=== PATIENT | female | born 1965 | race Caucasian/White ===

== ENCOUNTER 2021-06-27 09:39 | Outpatient (REF) | payer OTHER, SELFPAY ==
--- NOTE | ~2021-06-27 | XR_ITS ---
EXAMINATION: XR CERVICAL SPINE CLINICAL INFORMATION: Neck pain COMPARISON: None TECHNIQUE: 3 views of the cervical spine were obtained. FINDINGS: There are no prevertebral soft tissue or bony abnormalities demonstrated. No compression fractures or subluxations are identified. Alignment is maintained at the atlanto-axial articulation. The disc spaces are preserved. No endplate changes are seen. The prevertebral soft tissues are normal. The foramina are patent. XR/XR cervical spine 3V IMPRESSION: Unremarkable cervical spine examination.
== END 2021-06-27 09:40 | disposition home or self-care (01) ==
LOC: HO.HMGCLDS 09:39
PROVIDERS: PCP Nurse Practitioner Family; Visit Provider Nurse Practitioner Family
DX: M50.90 Cervical disc disorder, unspecified, unspecified cervical region (principal)
CPT/HCPCS: 72040

== ENCOUNTER 2021-12-13 09:07 | Emergency (ER) | payer OTHER, SELFPAY ==
--- NOTE | ~2021-12-13 | CT_ITS ---
EXAMINATION: CT CERVICAL SPINE WITHOUT CONTRAST CLINICAL INFORMATION: Pain COMPARISON: Previous x-ray June 2021 TECHNIQUE: Axial images through the cervical spine without contrast. Sagittal and coronal reconstructions on the technologist workstation were performed. This CT examination was performed using dose optimization techniques as appropriate, variously including the following: *Automated exposure control *Adjustment of mA and/or kV according to patient size (this includes techniques or standardized protocols for targeted exams where dose is matched to indication/reason for exam; i.e. extremities or head) *Use of iterative reconstruction technique DLP: 540 mGy-cm FINDINGS: Head is slightly tilted to the right. Bone alignment is otherwise normal. No fracture or dislocation is seen. There is degenerative spondylosis at C5-C6 and C6-C7. There is disc space narrowing at C6-C7. At C2-C3 there is no disc herniation protrusion or bulge. At C3-C4 there is mild central disc bulge. No disc herniation is seen. At C4-C5 there is central disc protrusion. No disc herniation is seen. At C5-C6 there is left paracentral disc bulge. No disc herniation is seen. At C6-C7 there is a right paracentral disc herniation/disc and bony osteophyte complex and narrowing of the right lateral recess. At C7-T1 there is no disc herniation protrusion or bulge. Prevertebral soft tissues are normal. There is shotty bilateral cervical lymphadenopathy. Visualized lung apices are clear. There is a left maxillary sinus disease. CT/CT cervical spine wo con IMPRESSION: No fracture or dislocation. Degenerative disc disease greatest at C6-C7 on the right where there is right paracentral disc herniation/disc and bony osteophyte complex narrowing of the right lateral recess. Fleischner guidelines were followed.
[2021-12-13 09:13] VITALS: BP 146/83; PULSE 75; RESP 16; TEMP 36.1; O2SAT 97; BMI 33.0
--- NOTE | 2021-12-13 09:19 | PC.NURSE ---
patient wanted to wait to see provider before x ray orders placed.
--- NOTE | 2021-12-13 10:20 | ED_ITS ---
HPI - General Adult General Chief complaint: General Medical Stated complaint: Neck Back Arm Pain Time Seen by Provider: 12/13/21 10:08 Source: patient and family Mode of arrival: ambulatory Limitations: no limitations History of Present Illness HPI narrative: 56-year-old female here with reports of neck pain which radiates and down the right arm intermittent since May worsened over the last few days. Patient tells me she had some x-rays and May or June. She was seen by her primary care at that time and she was given a course of prednisone. Patient tells me that she had side effects from prednisone as she did not continue the medication. She was seen 2 days ago at urgent care. She was recommended to take another dose of prednisone but patient did not want to. She is here today for continued symptoms. She is taking Motrin, Tylenol with continued symptoms. She did take 1 dose of her 's tramadol which seemed to help her pain. She reports pain in the neck which radiates down the right arm with numbness in the 2nd and 3rd digit. She denies any known injury or trauma. 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 She is right- handed. Related Data Previous Rx's Medication Instructions Recorded cyclobenzaprine 5 mg tablet 5 mg PO TID PRN muscle spasm #15 12/13/21 tabs tramadol 50 mg tablet 50 mg PO Q6H PRN pain #10 tabs 12/13/21 Allergies Allergy/AdvReac Type Severity Reaction Status Date / Time ciprofloxacin [From CIPRO] Allergy Severe UNKNOWN Verified 07/20/21 07:52 Sulfa (Sulfonamide Allergy Unknown UNKNOWN, Verified 07/20/21 07:52 Antibiotics) Vomiting [SULFA (SULFONAMIDE ANTIBIOTICS)] Antibiotic Allergy Unknown Unknown Uncoded 07/20/21 07:52 bee sting Allergy Unknown Swelling Uncoded 07/20/21 07:52 Bee stings Allergy Unknown Severe Uncoded 07/20/21 07:52 swelling, SOB Ciprofloxacin Allergy Unknown dizziness Uncoded 07/20/21 07:52 Review of Systems Review of Systems: Yes all other systems are reviewed and are negative Constitutional: Constitutional: Reports no additional constitutional complaints, Denies body ache(s), Denies chills, Denies fever(s), Denies headache(s) and Denies weakness Eyes: Eyes: Reports no additional eye complaints and Denies change in vision ENT: Reports system reviewed and no additional complaints, except as documented, Denies dizziness, Denies headache(s), Denies nasal congestion, Denies nasal discharge and Reports neck pain Cardiovascular: Cardiovascular: Reports no additional cardiovascular complaints, Denies chest pain, Denies leg edema and Denies dyspnea Respiratory: Respiratory: Reports no additional respiratory complaints, Denies cough and Denies dyspnea Gastrointestinal: Gastrointestinal: Reports no additional gastrointestinal complaints, Denies abdominal pain, Denies diarrhea, Denies nausea and Denies vomiting Genitourinary: Genitourinary: Reports no additional female genitourinary complaints and Denies urinary incontinence Musculoskeletal: Musculoskeletal: Reports no additional musculoskeletal complaints, Denies back pain, Denies arthralgias, Denies joint swelling, Reports neck pain, Reports numbness, Reports radiating pain into limb and Denies tingling Integumentary/Breasts: Skin/Breast: Reports system reviewed and no additional complaints, except as docu and Denies rash Neurologic: Reports system reviewed and no additional complaints, except as documented, Denies dizziness, Denies headache(s), Reports numbness, Denies tingling and Denies weakness [facility] Past Medical History Attestation statement: The following information was validated with the patient. Source: old records reviewed and nursing notes reviewed Social History Social History Patient Tobacco Use Status: Former Tobacco user Advance Directives: No Advance Directives Information Provided: Yes Physical Exam ED Vital Signs: Vital Signs - 24 hr 12/13/21 09:13 12/13/21 12:14 Temperature 96.9 F 97.9 F Pulse Rate 75 53 Respiratory Rate 16 16 Blood Pressure 146/83 H 187/87 H Pulse Oximetry 97 95 Oxygen Delivery Method Room Air Room Air BMI result Body Mass Index 33.0 Const General: alert Orientation/consciousness: patient oriented x3 Limitations: no limitations HENMT Head: Yes normal to inspection Ears: hearing grossly normal bilaterally General nose exam: Normal external nose present Face and sinus: Yes normal facial exam Eyes General: appearance normal, both eyes and all related structures Pupils: Equal, round and reactive pupils present Neck Other: There is tenderness to the cervical mid spine. There are no step-offs defor mities. There is also tenderness to the right trapezius with palpable muscle spasm. Pain is relieved with the arm over the head. +Spurlings Neck: Yes normal visual inspection Chest Chest palpation & inspection: normal inspection of the chest Resp Effort & Inspection: normal respiratory effort Auscultation: clear to auscultation bilaterally Cardio Rate: regular rate Rhythm: regular rhythm Peripheral pulses: Peripheral pulses 2+ throughout GI Inspection: Yes normal to inspection Back/Spine/Pelvis Thoracic/Lumbar Spine: thoracic and lumbar spine normal to inspection Skin General skin exam: no rashes or lesions noted Neuro General: patient oriented x3 Cranial nerves: Yes CN's II-XII intact bilaterally, Yes Equal, round and reactive pupils present, Yes Bilaterally intact EOM present, Yes Nystagmus not present, Yes Normal facial strength present and Yes Midline tongue present Cognition (Neuro): normal cognition Gait exam (Neuro): Normal gait present Motor exam (neuro): 5/5 motor strength present throughout Sensory Exam: Normal double simultaneous stimulation for sensation Deep tendon reflexes (DTR's): Right triceps reflex intensity grade: 2+, Left triceps reflex intensity grade: 2+, Rt Biceps (C5, C6): 2+, Left biceps reflex intensity grade: 2+, Right brachioradialis reflex intensity grade: 2+ and Left brachioradialis reflex intensity grade: 2+ Extrem General: Yes normal to inspection Course Course Course Narrative: CT shows IMPRESSION: No fracture or dislocation. Degenerative disc disease greatest at C6-C7 on the right where there is right paracentral disc herniation/disc and bony osteophyte complex narrowing of the right lateral recess. ? -pain now 4/10 after receiving Toradol. Patient is hesitant to try a round of prednisone as she had poor side effects to the last round. She has ibuprofen at home. Recommend she take this 3 times a day. Will add Flexeril and tramadol. Patient has referral for physical therapy which I recommended she start. She can follow up with her primary care doctor for any persistent symptoms. Bruce woodward worrisome signs and symptoms of when to return to the emergency department. Comfortable discharge home. Medical Decision Making [facility] Narrative Medical decision making narrative: 56-year-old female here with intermittent neck pain with radiation down the right arm since May. Patient reports some numbness in her 2nd and 3rd digit. Normal neuro exam. No cervical step-offs or deformities. There is midline cervical tenderness and right trapezius tenderness on exam. Positive spurlings test. +shoulder abduction test. Exam is consistent with a cervical radiculopathy. Patient is a considerable amount of pain. Will check CT cervical spine to rule out underlying mass, verterbral abnormality. Will provide Toradol IM and re-assess. -low concern for epidural abscess with no history of IV drug abuse, no fever, no immunocompromised state Medical Records Medical records reviewed: Yes I reviewed the patient's medical records. Lab Data Lab results reviewed: Yes I reviewed the patient's lab results. Imaging Data CT cervical spine: Attestation: I personally reviewed and interpreted this imaging study as follows: Radiologist's impression: IMPRESSION: No fracture or dislocation. Degenerative disc disease greatest at C6-C7 on the right where there is right paracentral disc herniation/disc and bony osteophyte complex narrowing of the right lateral recess. ? Discharge Plan Discharge Clinical Impression: Cervical radiculopathy Patient Disposition: Home, Self-Care Instructions: Cervical Radiculopathy (ED) Additional Instructions: Heat to the area Gentle stretching Follow-up with primary care doctor for persistent symptoms as you may require an MRI Return for fever, weakness Continue Motrin 3 times daily Consider doing the physical therapy Prescriptions: New tramadol 50 mg tablet 50 mg PO Q6H PRN (Reason: pain) Qty: 10 0RF cyclobenzaprine 5 mg tablet 5 mg PO TID PRN (Reason: muscle spasm) Qty: 15 0RF Referrals: Idris Gracia, DIESEL TECHNICIAN MECHANIC-[employer] [Primary Care Provider] - Stand Alone Forms: Work/School Release
[2021-12-13] MEDS: Ketorolac Tromethamine 60 MG/2 ML VIAL IM (10:33)
[2021-12-13 12:14] VITALS: BP 187/87; PULSE 53; RESP 16; TEMP 36.6; O2SAT 95
== END 2021-12-13 13:01 | disposition home or self-care (01) ==
PROVIDERS: Emergency Provider Emergency Medicine; PCP Nurse Practitioner Family
DX: M54.12 Radiculopathy, cervical region (principal); M54.2 Cervicalgia; Z87.891 Personal history of nicotine dependence; Z79.899 Other long term (current) drug therapy
CPT/HCPCS: 72125; 96372; 99284; J1885

== ENCOUNTER 2023-08-08 11:28 | Outpatient (AMB) | payer OTHER, SELFPAY ==
--- NOTE | 2023-08-08 11:26 | AM.OFFWIN_ITS ---
Intake Vital Signs 08/08/23 11:33 Height 4 ft 10 in Weight 146 lb BMI 30.5 BP 116/76 Blood Pressure Location Lt brachial Position Sitting Pulse 85 Pulse Source Pulse Oximeter Temp 98.9 F Temp Source Temporal Artery Scan Pulse Oximetry (%) 97 Oxygen Delivery Method Room Air Intake Visit Reasons: EP Bilateral ear pain/?Sinus infection Intake Note: pt is here today for bilateral ear pain and sinus infection started 2 weeks ago Patient Tobacco Use Status: Former Tobacco user Allergies ciprofloxacin [From CIPRO] Allergy (Severe, Verified 08/08/23 11:27) UNKNOWN Sulfa (Sulfonamide Antibiotics) [SULFA (SULFONAMIDE ANTIBIOTICS)] Allergy (Unknown, Verified 08/08/23 11:27) UNKNOWN, Vomiting Antibiotic Allergy (Unknown, Uncoded 12/20/21 11:29) Unknown bee sting Allergy (Unknown, Uncoded 12/20/21 11:29) Swelling Bee stings Allergy (Unknown, Uncoded 12/20/21 11:29) Severe swelling, SOB Ciprofloxacin Allergy (Unknown, Uncoded 12/20/21 11:29) dizziness Medication List - Last Reconciled 08/08/23 by Rita Keenan NP carbamide peroxide 6.5% (Debrox) 5 drps otic (ears) BID 7 days oxymetazoline 0.05% (Afrin (oxymetazoline)) 2 sprays intranasal Q12H PRN 3 days Do you need a note to return to daycare/school/sports/work: No HPI HPI Comments History of Present Illness Details 58 y/o female patient presents to walk i n clinic with c/o bilateral ear pain associated with sinus pressure. Denies fevers, chills, nausea or vomiting. Denies nasal discharge, cough, SOB or wheezing. No recent sick contacts at home. She has not been using OTC medicines. [facility] Medical History (Updated 06/15/22 @ 11:23 by KAELYN Meyer-BA) Cervical disc herniation DDD (degenerative disc disease), cervical Social History Patient Tobacco Use Status: Former Tobacco user Review of Systems Const All systems reviewed & are unremarkable except as noted in HPI and below Physical Exam Vital Signs: Last Vital Signs Temp 98.9 F 02/15/24 11:33 Pulse 85 08/08/23 11:33 BP 116/76 08/08/23 11:33 Pulse Ox 97 08/08/23 11:33 Oxygen Delivery Method Room Air 08/08/23 11:33 BMI result Body Mass Index 30.5 Const General: comfortable and no acute distress HEENT Head: Yes normocephalic Ears: external ears normal, TM abnormal obstructed by cerumen and unable to visualize TM bilaterally General nose exam: No nasal discharge present and Abnormal mucous membranes and turbinates present boggy and erythematous Face and sinus: Yes sinuses nontender Mouth: Normal oral and palatal mucosa present and moist mucous membranes Throat: Yes posterior oropharynx normal Resp Effort & Inspection: normal respiratory effort Auscultation: clear to auscultation bilaterally Cardio Rate: regular rate Rhythm: regular rhythm Assessment & Plan Assessment & Plan (1) Acute nasopharyngitis [common cold]: Code(s): J00 - Acute nasopharyngitis [common cold] Plan: - No signs of infection - OTC Afrin and nasal Cord (2) Cerumen impaction: Code(s): H61.20 - Impacted cerumen, unspecified ear Qualifiers: Laterality: bilateral Qualified Code(s): H61.23 - Impacted cerumen, bilateral Plan: - Debrox for 7 days. - Pt declined Ear lavage (3) Sinus pressure: Code(s): J34.89 - Other specified disorders of nose and nasal sinuses Plan: - Nasal saline OTC - Afrix for 3 days - Debrox Plan - Pt declined in office ear lavage - No signs of infection Medications: New oxymetazoline 0.05% (Afrin (oxymetazoline)) 2 sprays intranasal Q12H 3 days PRN 15 mL 0RF nasal congestion J00 - Acute nasopharyngitis [common cold], J34.89 - Other specified disorders of nose and nasal sinuses carbamide peroxide 6.5% (Debrox) 5 drps otic (ears) BID 7 days 15 mL 0RF H61.23 - Impacted cerumen, bilateral, J34.89 - Other specified disorders of nose and nasal sinuses Coding Level of Care Code Est Pt Level 3 (80407) Diagnoses Acute nasopharyngitis [common cold] J00 Bilateral impacted cerumen H61.23 Laterality: bilateral Sinus pressure J34.89 Time Spent (min) 15
[2023-08-08 11:33] VITALS: BP 116/76; PULSE 85; TEMP 37.2; O2SAT 97; BMI 30.5
== END 2023-08-08 12:26 | disposition home or self-care (01) ==
PROVIDERS: PCP Nurse Practitioner Family; Visit Provider Nurse Practitioner Family
DX: J00 Acute nasopharyngitis [common cold] (principal); H61.23 Impacted cerumen, bilateral; J34.89 Other specified disorders of nose and nasal sinuses
CPT/HCPCS: 99213

== ENCOUNTER 2023-10-11 08:06 | Outpatient (REF) | payer OTHER, SELFPAY ==
--- NOTE | ~2023-10-11 | XR_ITS ---
EXAMINATION: XR CHEST CLINICAL INFORMATION: Abnormal weight loss COMPARISON: 12/21/2018 TECHNIQUE: 2 views of the chest were obtained. FINDINGS: No significant abnormality is noted involving the heart, lungs, mediastinum, bony thorax or soft tissues. XR/XR chest 2V IMPRESSION: Unremarkable examination.
[2023-10-11 10:31] LABS: MANUAL DIFF FLAG NO
[2023-10-11 10:35] LABS: Appearance Urine Clear; Color Urine Yellow; Glucose Urine UA >=1000 mg/dL (Negative); Leukocyte Esterase Urine Negative (Negative); Nitrite Urine Negative (Negative); Specific Gravity - Urine >= 1.030 (1.005-1.025); UMIC TRIGGER UACC YES; Urine Blood Negative (Negative); Urine Ketones Trace mg/dL (Negative); Urine Protein Negative (Neg-Trace)
[2023-10-11 10:43] LABS: Bacteria Urine None Seen (None Seen); Hyaline Casts Urine 0-2 /LPF (0-2); RBC Urine 0-2 /HPF (0-2); WBC Urine 0-5 /HPF (0-5)
[2023-10-11 10:45] LABS: Basophils Absolute Auto 0.1 X10*3/uL (0.0-0.2); Basophils Percent Auto 1.3 % (0-2); Eosinophils Absolute Auto 0.1 X10*3/uL (0.0-0.4); Hematocrit 46.1 % (37.0-47.0); Hemoglobin 15.4 g/dl (12.0-16.0); Imm Gran Abs Auto 0.02 X10*3/uL (0.00-0.03); Imm Gran Pct Auto 0.4 % (0.0-0.4); Lymphocytes Absolute Auto 1.1 X10*3/uL (1.2-4.9); Lymphocytes Percent Auto 20.5 % (20-40); Mean Corpuscular HGB Conc 33.4 g/dl (31.0-35.0); Mean Corpuscular Hemoglobin 27.8 pg (27.0-33.0); Mean Corpuscular Volume 83.4 fL (80.0-98.0); Mean Platelet Volume 10.3 fL (9.4-12.3); Monocytes Absolute Auto 0.4 X10*3/uL (0.1-1.2); Monocytes Percent Auto 6.7 % (2-11); Neutrophils Absolute Auto 3.7 x10*3/uL (2.0-8.3); Neutrophils Percent Auto 69.1 % (45-73); Platelet Count 251 X10*3/uL (160-400); Red Blood Count 5.53 X10*6/uL (4.20-5.50); Red Cell Distribution Width 12.4 % (11.0-16.0); White Blood Count 5.4 X10*3/uL (4.8-10.8)
[2023-10-11 11:22] LABS: HBS Num1 > 1000.00 mIU/mL (0-7.99); HBc Num1 5.34 S/CO (0.00-0.79); HBsAGNum1 0.33 S/CO (0.00-0.99); HIV AB/AG Nonreactive (Nonreactive); HIV Num 1 0.04 S/CO (0.00-0.99); Hepatitis A Antibody IgM 0.12 Index (0-0.79); Hepatitis B Surface Antigen Negative (Negative); ~HepC Num1 0.15 S/CO (0.00-0.79); ~Hepatitis A Antibody IgM Nonreactive (Nonreactive); ~Hepatitis B Surface Antibody REACTIVE (Nonreactive); ~Hepatitis C Antibody Nonreactive (Nonreactive)
[2023-10-11 11:48] LABS: Erythrocyte Sedimentation Rate 5 MM/HR (0-20)
[2023-10-11 12:04] LABS: Alanine Aminotransferase 20 U/L (0-31); Albumin Level 4.1 g/dL (3.5-5.0); Alkaline Phosphatase 110 U/L (39-117); Anion Gap 11 (12-20); Aspartate Amino Transferase 18 U/L (5-31); Bilirubin Total 0.4 mg/dL (0.0-1.0); Blood Urea Nitrogen 14 mg/dL (9-16); C Reactive Protein 0.45 mg/dL (< or = 0.50); Calcium 9.8 mg/dL (8.4-10.2); Carbon Dioxide 28 mmol/L (22-29); Chloride 103 mmol/L (96-108); Cholesterol 218 mg/dL (<200); Estimated Glomerular Filt Rate > 60; Glucose Fasting 320 mg/dL (60-99); HDL Cholesterol 47 mg/dL (>40); LDL Cholesterol Calculated 148 mg/dL (<100); Potassium 3.9 mmol/L (3.3-5.1); Sodium 138 mmol/L (135-145); TSH reflex Free T4 4.16 uIU/mL (0.32-4.0); Total Protein 6.7 g/dL (6.5-8.0); Triglycerides 116 mg/dL (<150)
[2023-10-11 14:48] LABS: Free T4 (Free Thyroxine) 0.84 ng/dL (0.71-1.85)
[2023-10-11 15:06] LABS: HBc Num2 5.81 S/CO; HBc Num3 5.71 S/CO; Hepatitis B Core Antibody Reactive (Nonreactive)
== END 2023-10-11 08:07 | disposition home or self-care (01) ==
LOC: HO.HMGCX 08:06
PROVIDERS: PCP Nurse Practitioner Family; Visit Provider Nurse Practitioner Family
DX: I10 Essential (primary) hypertension (principal); R63.4 Abnormal weight loss
CPT/HCPCS: 36415; 71046; 80053; 80061; 81001; 84439; 84443; 85025; 85652; 86140; 86704; 86706; 86709; 86803; 87340; 87389

== ENCOUNTER 2023-10-15 14:55 | Outpatient (AMB) | payer OTHER, SELFPAY ==
[2023-10-15 15:00] VITALS: BP 110/72; PULSE 80; O2SAT 98; BMI 28.9
--- NOTE | 2023-10-15 15:00 | MHC.PC.OV ---
Vital Signs 10/15/23 15:00 Height 4 ft 10 in Weight 138 lb 8 oz BMI 28.9 BP 110/72 Blood Pressure Location Rt brachial Position Sitting Pulse 80 Pulse Source Pulse Oximeter Pulse Oximetry (%) 98 Oxygen Delivery Method Room Air Intake Visit Reasons: Follow up Weight loss >20 lbs Intake Note: pt is here for concern of weight loss over the last 4 months dropped 20lbs without changing any diet Bdr Required: No Accompanied by: Self / Same As Patient Allergies ciprofloxacin [From CIPRO] Allergy (Severe, Verified 10/15/23 15:04) UNKNOWN Sulfa (Sulfonamide Antibiotics) [SULFA (SULFONAMIDE ANTIBIOTICS)] Allergy (Unknown, Verified 10/15/23 15:04) UNKNOWN, Vomiting Antibiotic Allergy (Unknown, Uncoded 12/20/21 11:29) Unknown bee sting Allergy (Unknown, Uncoded 12/20/21 11:29) Swelling Bee stings Allergy (Unknown, Uncoded 12/20/21 11:29) Severe swelling, SOB Ciprofloxacin Allergy (Unknown, Uncoded 12/20/21 11:29) dizziness Medication List - Last Reconciled 10/15/23 by SERGEI Meyer atorvastatin 20 mg PO BEDTIME lisinopril 2.5 mg PO DAILY metformin ER 500 mg PO BID 30 days Tobacco use date assessed: 10/15/23 Dental Screening Dental Screen Date: 10/15/23 Did you have a dental visit in the last 12 months?: Yes Did you have a dental problem in the last 6 months where you did not have access to dental care?: No Was dental information given to patient?: Patient has dentist HPI Follow up Weight loss >20 lbs HPI Details .Pt reports rapid weight loss. Recent labs showed elevated fasting blood sugar of 320. Explained to pt that she is now a diabetic. Denies polyuria, polydipsia, and neuropathy. Pt denies any signs and symptoms of hypoglycemia and does know how to correct it. Will refer to nurse navigator for diabetes education. Will start metformin 500mg bid. Will also start low-dose ABNER and statin. Will send meter and supplies, educated on bid testing. Pt will schedule her own eye exam. Refused pneumonia vaccinations. Pt knows the s/s of hypoglycemia and how to corrrect it. [facility] Medical History (Updated 10/15/23 @ 15:28 by SERGEI Meyer) Cervical disc herniation DDD (degenerative disc disease), cervical Surgical History S/P tonsillectomy Hx of tubal ligation Social History Patient Tobacco Use Status: Former Tobacco user Cognitive needs: No Hearing needs: No Vision needs: Yes Questionnaire PHQ-9 Over the last 2 weeks, how often have you been bothered by any of the following problems? 1. Little interest or pleasure in doing things: not at all 2. Feeling down, depressed, or hopeless: not at all 3. Trouble falling or staying asleep, or sleeping too much: more than half the days 4. Feeling tired or having little energy: not at all 5. Poor appetite or overeating: not at all 6. Feeling bad about yourself - or that you are a failure or have let yourself or your family down: not at all 7. Trouble concentrating on things, such as reading the newspaper or watching television: not at all 8. Moving or speaking so slowly that other people could have noticed. Or the opposite - being so fidgety or restless that you have been moving around a lot more than usual: not at all 9. Thoughts that you would be better off or of hurting yourself in some way: not at all Total score: 2 Depression Screening Interpretation: Negative Depression Screening Done: Yes 69680 - PHQ-9 Billing: Yes Source: Developed by Drs. Jose De Jesus Horvath, Bita Huerta, Alexi Ryan and colleagues, with an educational jessica from [employer]. Thrive Questionnaire Date Thrive assessed: 10/15/23 I am a: Patient What is your living situation today?: I have a steady place to live Within the past 12 months, did the food you bought not last and you didn't have the money to get more?: Never true Within the past 12 months, did you worry whether your food would run out before you got money to buy more?: Never true Do you have trouble paying for medicines?: No Do you have trouble getting transportation to medical appointments?: No Do you have trouble paying your heating and electricity bill?: No Do you have trouble taking care of your child, family member or friend?: No Do you have trouble with day-to-day activities such as bathing, preparing meals, shopping, managing finances, etc.?: No Are you currently unemployed and looking for a job?: No Are you interested in more education?: No Please select the resources that you would like help with: None Currently or been in a relationship where the following occur: no concerns reported THRIVE Score: 0 AUDIT C Alcohol Use Questionnaire (AUDIT-C) 1. How often do you have a drink containing alcohol?: Monthly or less 2. How many drinks containing alcohol do you have on a typical day when you are drinking?: 1 or 2 3. How often do you have six or more drinks on one occasion?: Never Total Score: 1 Score Reviewed/Action Taken: Yes MASSIMO-7 AMB Questionnaire MASSIMO-7 Date MASSIMO - 7 assessed: 10/15/23 Feeling nervous, anxious, or on edge: 0 = Not at all Not being able to stop or control worryin = Not at all Worrying too much about different things: 0 = Not at all Trouble relaxin = Not at all Being so restless that it is hard to sit still: 0 = Not at all Becoming easily annoyed or irritable: 0 = Not at all Feeling afraid as if something awful might happen: 0 = Not at all Total MASSIMO-7 score (0-4 normal; 5-9 mild; 10-14 moderate; 15-21 severe): 0 Source: Developed by Drs. Jose De Jesus Horvath, Bita Huerta, Alexi Ryan and colleagues, with an educational jessica from [employer]. MASSIMO-7 Assessment Billing MASSIMO-7 Assessment Tool: MASSIMO-7 Assessment 04988 Physical exam (Primary Care) Vital Signs: Last Vital Signs Pulse 80 10/15/23 15:00 BP 110/72 10/15/23 15:00 Pulse Ox 98 10/15/23 15:00 Oxygen Delivery Method Room Air 10/15/23 15:00 BMI result Body Mass Index 28.9 Tobacco/Smoking Status: Tobacco use Status Tobacco use date assessed 10/15/23 10/15/23 15:09 Patient Tobacco Use Status Former Tobacco user 10/15/23 15:00 PHQ-9: PHQ-9 Score PHQ-9: Total score 2 10/15/23 15:09 Depression Screening Interpretation: Negative Thrive Assessment: Date of Thrive Assessment Date Thrive assessed 10/15/23 10/15/23 15:09 Currently or been in a relationship where the following occur: no concerns reported Const General: cooperative Orientation/consciousness: patient oriented x3 Resp Effort & Inspection: normal respiratory effort Auscultation: clear to auscultation bilaterally Cardio Rate: regular rate Rhythm: regular rhythm Heart sounds: S1 normal heart sound present, S2 normal heart sound present and Murmur heart sound present systolic Neuro General: patient oriented x3 Extrem Other: bilat feet: + sensation with use of monofilament, feet intact Psych Appearance: grossly normal Mental Status: mental status grossly normal Speech and movement: Normal speech and movement present Affect: normal affect Attitude: cooperative Thought process: Normal thought process present Thought content: Normal thought content present Insight: Good insight present (Psych) Judgement: Good judgement present (Psych) Assessment and Plan Assessment & Plan (1) Newly diagnosed diabetes: Code(s): E11.9 - Type 2 diabetes mellitus without complications Plan: Starting a statin, starting an Abner, starting metformin. We will have her start to take her sugars at home. We will have her follow-up with our nurse navigator on diabetes education. We will follow up with the patient (2) Systolic murmur: Code(s): R01.1 - Cardiac murmur, unspecified Plan: echo ordered Orders: Orders Comprehensive [place]. Panel Fast 3 Months E11.9 - Type 2 diabetes mellitus without complications CA echo transthoracic complete Today R01.1 - Cardiac murmur, unspecified Complete Blood Count Auto Diff 3 Months E11.9 - Type 2 diabetes mellitus without complications TSH reflex Free T4 3 Months E11.9 - Type 2 diabetes mellitus without complications UA CC w/rflx Micro + Cult 3 Months E11.9 - Type 2 diabetes mellitus without complications Lipid Panel 3 Months E11.9 - Type 2 diabetes mellitus without complications Referrals Nurse Navigator Referral E11.9 - Type 2 diabetes mellitus without complications Medications: New lisinopril 2.5 mg PO DAILY 90 tabs 0RF atorvastatin 20 mg PO BEDTIME 90 tabs 0RF metformin ER first week, once a day please, then twice a day thereafter 500 mg PO BID 30 days 60 tabs 4RF Coding Level of Care Code Est Pt Level 3 (38208) Diagnoses Newly diagnosed diabetes E11.9 Systolic murmur R01.1 Additional Codes MASSIMO-7 Assessment Billing - MASSIMO-7 Assessment Tool: MASSIMO-7 Assessment 48969 ([id number])
== END 2023-10-15 16:20 | disposition home or self-care (01) ==
PROVIDERS: PCP Nurse Practitioner Family; Visit Provider Nurse Practitioner Family
DX: E11.9 Type 2 diabetes mellitus without complications (principal); R01.1 Cardiac murmur, unspecified
CPT/HCPCS: 99213

== ENCOUNTER → 2023-11-07 07:57 | Outpatient (REF) | payer OTHER, SELFPAY ==
--- NOTE | 2023-11-07 08:00 | CA_ITS ---
Transthoracic Echocardiogram Patient (Last, First, Middle): Ginger Hickman E Gender: Female Date of : 1965 Age: 58 Procedure Date: 11/07/2023 Procedure Type: Transthoracic Echocardiogram Location: OP Height: 147.32 cm Weight: 61.24 kg BSA: 1.54 m2 Heart Rate: bpm BP: 115 / 72 mmHg Magnaflux Operator: JANIE Referring MD: Idris Gracia [facility] Gamma Ray Operator: Connor Garvey MD Symptoms: R01.1 - Cardiac murmur, unspecified Study Quality: Adequate ECG Rhythm: Sinus Conclusions: - 1. Normal LV systolic function with LVEF of 65-70% 2. Increased gradient across aortic valve without significant aortic stenosis 3. No gross pericardial effusion Findings Left Ventricle Normal left ventricular size, thickness, and systolic function. The visually estimated ejection fraction is between 65-70%. Spectral Doppler is indicative of a normal filling pattern. Peak GLS is -21.6%, within normal limits. Right Ventricle Normal right ventricular cavity size and systolic function. Atria Both atria are normal in size. There is no evidence of interatrial shunt. Aortic Valve Normal aortic valve structure and function. There is no aortic valve stenosis. There is no aortic valve regurgitation. increased gradient across the aortic valve with normal leaflet mobility, most likely suggestive of increased stroke volume. Mitral Valve Normal mitral valve structure and function. There is trace mitral valve regurgitation. There is no mitral valve stenosis. Pulmonic Valve The pulmonic valve is likely normal. There is trace pulmonic valve regurgitation. Tricuspid Valve Likely normal tricuspid valve structure and function. Tricuspid regurgitation envelope is inadequate for calculation of right ventricular systolic pressure. Normal right atrial pressure. Great Vessels All visible segments of the aorta are normal in size. The pulmonary artery was not well visualized. There is no evidence of plaque in the aorta. Venous The inferior vena cava is normal in size and collapses greater than 50% with inspiration. Pericardium/Pleural There is no evidence of pericardial effusion. Prior Study Comparison No prior study available for comparison. Measurements 2D Linear Measurements IVSd: 0.82 0.6-0.9/0.6-1.0 cm LVIDd: 3.95 3.9-5.3/4.2-5.9 cm LVIDd Index: 2.56 2.4-3.2/2.2-3.1 cm/m2 LVIDs: 2.76 2.0-3.6 cm LVPWd: 0.78 0.7-1.1 cm LA Diam: 3.80 2.7-3.8/3.0-4.0 cm LAIDs Index: 2.47 1.5-2.3 cm/m2 LV Mass: 113.89 67-162/88-224 g LV Mass Index: 73.95 43-95/49-115 g/m2 LVOT Diam: 1.90 3.0+(-)1.3 cm 2D Systolic Function EF 4C: 74.60 >55% EF 2C: 76.00 >55% EF BiP: 75.50 >55% Mitral Valve MV Pk E: 1.01 MV PK A: 0.95 MV Decel Time: 259.00 E/A: 1.10 E'Lateral: 7.83 E'Medial: 4.68 E/E' Med: 21.60 E/E' Lat: 12.90 PHT: 76.00 MVA PHT: 2.89 Decel [place]: 3.88 Aortic Valve AoV Pk Quinten: 1.85 AoV Mn Quinten: 1.13 AoV VTI: 0.39 AoV Pk Grad: 14.00 Aov Mn Grad: 6.00 NICOLA Cont.VTI: 2.04 LVOT LVOT Pk Quinten: 1.19 LVOT Mn Quinten: 0.80 LVOT VTI: 0.28 LVOT Pk Grad: 6.00 LVOT Mn Grad: 3.00 LVOT Diam: 1.90 LVOT Area: 2.84 Diastolic Function MV Pk E: 1.01 MV Pk A: 0.95 E/A: 1.10 E'Medial: 4.68 E/E' Med: 21.60 E' Laterial: 7.83 E/E' Lat: 12.90 Right Ventricle TAPSE (mm): 22.20 TVS' Quinten: 16.10 Tricuspid Valve RA Press: 3.00 Great Vessels Aorta Sinus of Valsalva: 3.02 2.0-3.[address] [place]: 2.72 1.7-3.4 cm Ao Asc: 3.20 2.1-3.4 cm Ao Arch: 2.70 Updated in Other Vendor System with Status of Final Connor Garvey MD electronically signed on 11/07/2023 6:28:39 PM with status of Final
== END ==
LOC: HO.CARD 07:57
PROVIDERS: PCP Nurse Practitioner Family; Visit Provider Nurse Practitioner Family
DX: R01.1 Cardiac murmur, unspecified (principal)
CPT/HCPCS: 93306; 93356

== ENCOUNTER → 2023-11-07 08:00 | Outpatient (BNV) | payer OTHER, SELFPAY | PROVIDERS: PCP Nurse Practitioner Family; Visit Provider Internal Medicine Cardiovascular Disease | DX: R01.1 Cardiac murmur, unspecified (principal); R93.1 Abnormal findings on diagnostic imaging of heart and coronary circulation | CPT/HCPCS: 93306; 93356 ==

== ENCOUNTER 2023-11-30 13:14 | Outpatient (REF) | payer OTHER, SELFPAY ==
[2023-12-02 14:30] LABS: FIT1 NEGATIVE (NEGATIVE)
[2023-12-02 15:02] LABS: FIT Int Ctl YES; FIT2 NEGATIVE (NEGATIVE)
== END 2023-11-30 13:15 | disposition home or self-care (01) ==
LOC: HO.LNP 13:14
PROVIDERS: Visit Provider Nurse Practitioner Family
DX: R63.4 Abnormal weight loss (principal)
CPT/HCPCS: 82274

== ENCOUNTER 2023-12-23 08:43 | Outpatient (REF) | payer OTHER, SELFPAY ==
--- NOTE | ~2023-12-23 | MM_ITS ---
EXAMINATION: MM SCREENING DIGITAL BREAST TOMOSYNTHESIS, BILATERAL CLINICAL INFORMATION: Screening. Asymptomatic. COMPARISON: Mammography: There are no prior mammograms for comparison. TECHNIQUE: Digital breast tomosynthesis is performed in both the craniocaudal and mediolateral oblique views along with computer-aided detection (CAD). Synthesized 2D images are generated from the tomosynthesis. FINDINGS: There are scattered areas of fibroglandular density (ACR BI-RADS breast composition Category b). There are no significant masses, abnormal calcifications, or other abnormalities. MM/MM tomosynthesis screening BI IMPRESSION: No mammographic evidence of malignancy. ASSESSMENT: BI-RADS BI-RADS 1 - Negative RECOMMENDATION: Routine annual mammography screening. 1 year F/U This examination should not preclude the clinical evaluation of a suspicious palpable abnormality. This patient's information was entered into a reminder system with a target due date for their next mammogram.
== END 2023-12-23 08:44 | disposition home or self-care (01) ==
LOC: HO.MAMMO 08:43
PROVIDERS: PCP Nurse Practitioner Family; Visit Provider Nurse Practitioner Family
DX: Z12.31 Encounter for screening mammogram for malignant neoplasm of breast (principal)
CPT/HCPCS: 77063; 77067

== ENCOUNTER → 2023-12-23 08:45 | Outpatient (BNV) | payer OTHER, SELFPAY | PROVIDERS: PCP Nurse Practitioner Family; Visit Provider Radiology Diagnostic Radiology | DX: Z12.31 Encounter for screening mammogram for malignant neoplasm of breast (principal) | CPT/HCPCS: 77063; 77067 ==

== ENCOUNTER 2023-12-31 08:15 | Outpatient (REF) | payer OTHER, SELFPAY ==
[2023-12-31 10:10] LABS: MANUAL DIFF FLAG NO
[2023-12-31 10:15] LABS: Appearance Urine Clear; Color Urine Yellow; Glucose Urine UA >=1000 mg/dL (Negative); Leukocyte Esterase Urine Negative (Negative); Nitrite Urine Negative (Negative); PH 5.5 (5.0-9.0); Specific Gravity - Urine >= 1.030 (1.005-1.025); UMIC TRIGGER UACC YES; Urine Blood Negative (Negative); Urine Ketones Trace mg/dL (Negative); Urine Protein Negative (Neg-Trace)
[2023-12-31 10:19] LABS: Bacteria Urine None Seen (None Seen); Hyaline Casts Urine 0-2 /LPF (0-2); RBC Urine 0-2 /HPF (0-2); Squamous Epithelial Cell Urine 0-2 /HPF (0-2); WBC Urine 0-5 /HPF (0-5)
[2023-12-31 10:20] LABS: Basophils Absolute Auto 0.1 X10*3/uL (0.0-0.2); Eosinophils Absolute Auto 0.1 X10*3/uL (0.0-0.4); Eosinophils Percent Auto 1.3 % (0-4); Hematocrit 43.2 % (37.0-47.0); Hemoglobin 14.4 g/dl (12.0-16.0); Imm Gran Abs Auto 0.02 X10*3/uL (0.00-0.03); Imm Gran Pct Auto 0.3 % (0.0-0.4); Lymphocytes Absolute Auto 0.9 X10*3/uL (1.2-4.9); Lymphocytes Percent Auto 13.6 % (20-40); Mean Corpuscular HGB Conc 33.3 g/dl (31.0-35.0); Mean Corpuscular Hemoglobin 28.8 pg (27.0-33.0); Mean Corpuscular Volume 86.4 fL (80.0-98.0); Mean Platelet Volume 10.4 fL (9.4-12.3); Monocytes Absolute Auto 0.5 X10*3/uL (0.1-1.2); Monocytes Percent Auto 7.7 % (2-11); Neutrophils Absolute Auto 4.8 x10*3/uL (2.0-8.3); Neutrophils Percent Auto 76.1 % (45-73); Platelet Count 219 X10*3/uL (160-400); Red Cell Distribution Width 13.5 % (11.0-16.0); White Blood Count 6.3 X10*3/uL (4.8-10.8)
[2023-12-31 10:34] LABS: Estimated Average Glucose 166 mg/dL; Hemoglobin A1c % 7.4 % (<6.0)
[2023-12-31 11:13] LABS: Alanine Aminotransferase 16 U/L (0-31); Albumin Level 4.1 g/dL (3.5-5.0); Alkaline Phosphatase 66 U/L (39-117); Anion Gap 13 (12-20); Aspartate Amino Transferase 13 U/L (5-31); Bilirubin Total 0.6 mg/dL (0.0-1.0); Blood Urea Nitrogen 22 mg/dL (9-16); Calcium 10.2 mg/dL (8.4-10.2); Carbon Dioxide 27 mmol/L (22-29); Chloride 105 mmol/L (96-108); Cholesterol 112 mg/dL (<200); Estimated Glomerular Filt Rate > 60; Glucose Fasting 127 mg/dL (60-99); HDL Cholesterol 43 mg/dL (>40); LDL Cholesterol Calculated 57 mg/dL (<100); Potassium 3.7 mmol/L (3.3-5.1); Sodium 141 mmol/L (135-145); TSH reflex Free T4 3.79 uIU/mL (0.32-4.0); Total Protein 6.4 g/dL (6.5-8.0); Triglycerides 62 mg/dL (<150)
== END 2023-12-31 08:16 | disposition home or self-care (01) ==
LOC: HO.HMGCLDS 08:15
PROVIDERS: PCP Nurse Practitioner Family; Visit Provider Nurse Practitioner Family
DX: E11.9 Type 2 diabetes mellitus without complications (principal)
CPT/HCPCS: 36415; 80053; 80061; 81001; 83036; 84443; 85025

== ENCOUNTER 2024-01-16 12:46 | Outpatient (AMB) | payer OTHER, SELFPAY ==
--- NOTE | 2024-01-16 12:55 | MHC.PC.OV ---
Vital Signs 01/16/24 12:58 Height 4 ft 10 in Weight 142 lb BMI 29.7 BP 128/70 Blood Pressure Location Lt brachial Position Sitting Pulse 76 Pulse Source Pulse Oximeter Pulse Oximetry (%) 98 Oxygen Delivery Method Room Air Intake Visit Reasons: Annual PE Intake Note: Patient here for physical exam. Mammo: 2023 Colon: denies Allergies ciprofloxacin [From CIPRO] Allergy (Severe, Verified 01/16/24 13:00) UNKNOWN Sulfa (Sulfonamide Antibiotics) [SULFA (SULFONAMIDE ANTIBIOTICS)] Allergy (Unknown, Verified 01/16/24 13:00) UNKNOWN, Vomiting Antibiotic Allergy (Unknown, Uncoded 01/16/24 13:00) Unknown bee sting Allergy (Unknown, Uncoded 01/16/24 13:00) Swelling Bee stings Allergy (Unknown, Uncoded 01/16/24 13:00) Severe swelling, SOB Ciprofloxacin Allergy (Unknown, Uncoded 01/16/24 13:00) dizziness Medication List - Last Reconciled 01/16/24 by SERGEI Meyer atorvastatin 20 mg PO BEDTIME empagliflozin 25 mg PO DAILY 90 days lisinopril 2.5 mg PO DAILY metformin ER 500 mg PO BID Tobacco use date assessed: 10/15/23 Dental Screening Dental Screen Date: 10/15/23 HPI Annual PE HPI Details Pt is here for a PE. Will order labs. Due for colon screen, will order cologuard. Mammo is up to date. Pt is a diabetic, on an YRIS and a statin. Last A1C was 7.4. Due for microalbumin. Denies polyuria, polydipsia, and neuropathy. Pt denies any signs and symptoms of hypoglycemia and does know how to correct it. Jardiance was increased from 10mg to 25mg this week. Will refer for eye exam. [facility] Medical History Cervical disc herniation DDD (degenerative disc disease), cervical Surgical History S/P tonsillectomy Hx of tubal ligation Social History Patient Tobacco Use Status: Former Tobacco user Cognitive needs: No Hearing needs: No Vision needs: Yes Questionnaire PHQ-9 Over the last 2 weeks, how often have you been bothered by any of the following problems? 1. Little interest or pleasure in doing things: not at all 2. Feeling down, depressed, or hopeless: not at all 3. Trouble falling or staying asleep, or sleeping too much: nearly every day 4. Feeling tired or having little energy: not at all 5. Poor appetite or overeating: not at all 6. Feeling bad about yourself - or that you are a failure or have let yourself or your family down: not at all 7. Trouble concentrating on things, such as reading the newspaper or watching television: not at all 8. Moving or speaking so slowly that other people could have noticed. Or the opposite - being so fidgety or restless that you have been moving around a lot more than usual: not at all 9. Thoughts that you would be better off or of hurting yourself in some way: not at all Total score: 3 Depression Screening Interpretation: Negative Depression Screening Done: Yes 73070 - PHQ-9 Billing: Yes Source: Developed by Drs. Jose De Jesus Horvath, Bita Huerta, Alexi Ryan and colleagues, with an educational jessica from [employer]. Thrive Questionnaire Date Thrive assessed: 01/09/24 I am a: Patient What is your living situation today?: I have a steady place to live Within the past 12 months, did the food you bought not last and you didn't have the money to get more?: Never true Within the past 12 months, did you worry whether your food would run out before you got money to buy more?: Never true Do you have trouble paying for medicines?: No Do you have trouble getting transportation to medical appointments?: No Do you have trouble paying your heating and electricity bill?: No Do you have trouble taking care of your child, family member or friend?: No Do you have trouble with day-to-day activities such as bathing, preparing meals, shopping, managing finances, etc.?: No Are you currently unemployed and looking for a job?: No Are you interested in more education?: No Please select the resources that you would like help with: Housing/Group Home Currently or been in a relationship where the following occur: No concerns reported THRIVE Score: 0 AUDIT C Alcohol Use Questionnaire (AUDIT-C) 2. How many drinks containing alcohol do you have on a typical day when you are drinking?: 1 or 2 Total Score: 0 MASSIMO-7 AMB Questionnaire MASSIMO-7 Date MASSIMO - 7 assessed: 10/15/23 Feeling nervous, anxious, or on edge: 0 = Not at all Not being able to stop or control worryin = Not at all Worrying too much about different things: 0 = Not at all Trouble relaxin = Not at all Being so restless that it is hard to sit still: 0 = Not at all Becoming easily annoyed or irritable: 0 = Not at all Feeling afraid as if something awful might happen: 0 = Not at all Total MASSIMO-7 score (0-4 normal; 5-9 mild; 10-14 moderate; 15-21 severe): 0 Source: Developed by Drs. Jose De Jesus Horvath, Bita Huerta, Alexi Ryan and colleagues, with an educational jessica from [employer]. MASSIMO-7 Assessment Billing MASSIMO-7 Assessment Tool: MASSIMO-7 Assessment 92293 Review of Systems Const Denies chills and Denies fever(s) Eyes Denies blurry vision ENT Denies vertigo, Denies dizziness and Denies sore throat Card Denies chest pain at rest, Denies chest pain with activity, Denies diaphoresis, Denies dyspnea and Denies dyspnea on exertion Resp Denies cough, Denies dyspnea, Denies dyspnea on exertion and Denies wheezing GI Denies abdominal pain, Denies melena, Denies hematochezia, Denies constipation, Denies diarrhea and Denies loose stools Denies hematuria Musc Denies numbness and Denies tingling Skin/Breast Denies lesions Neuro Denies vertigo, Denies dizziness, Denies numbness and Denies tingling Psych Denies anxiety, Denies depression, Denies homicidal ideation, Denies suicidal ideation and Denies other (substance abuse) Aller/Immun Denies wheezing Physical exam (Primary Care) Vital Signs: Last Vital Signs Pulse 76 01/16/24 12:58 BP 128/70 01/16/24 12:58 Pulse Ox 98 01/16/24 12:58 Oxygen Delivery Method Room Air 01/16/24 12:58 BMI result Body Mass Index 29.7 Tobacco/Smoking Status: Tobacco use Status Tobacco use date assessed 10/15/23 01/16/24 12:55 Patient Tobacco Use Status Former Tobacco user 01/16/24 12:55 PHQ-9: PHQ-9 Score PHQ-9: Total score 3 01/16/24 13:18 Depression Screening Interpretation: Negative Thrive Assessment: Date of Thrive Assessment Date Thrive assessed 01/09/24 01/16/24 12:55 Currently or been in a relationship where the following occur: No concerns reported Const General: cooperative Nutritional Appearance: well nourished Orientation/consciousness: patient oriented x3 HENMT Head: Yes normal to inspection, Yes normocephalic and Yes atraumatic Ears: TM's normal bilaterally Eyes General: appearance normal, both eyes and all related structures Alignment and Position: alignment normal and position normal Neck Neck: Yes normal visual inspection and Yes no lymphadenopathy Thyroid: Thyroid normal Resp Effort & Inspection: normal respiratory effort Auscultation: clear to auscultation bilaterally Cardio Rate: regular rate Rhythm: regular rhythm Heart sounds: S1 normal heart sound present, S2 normal heart sound present and Murmur heart sound present systolic GI Palpation (GI): Soft to palpation and nontender Auscultation: normal bowel sounds Skin Other: right bicep with slightly raised darker lesion (more circular) Rashes: no rashes Neuro General: patient oriented x3, moves all extremities, no focal motor deficits and deep tendon reflexes 2+ bilaterally Romberg Test: Negative Psych Appearance: grossly normal Mental Status: mental status grossly normal Speech and movement: Normal speech and movement present Affect: normal affect Attitude: cooperative Thought process: Normal thought process present Thought content: Normal thought content present Insight: Good insight present (Psych) Judgement: Good judgement present (Psych) Assessment and Plan Assessment & Plan (1) Newly diagnosed diabetes: Code(s): E11.9 - Type 2 diabetes mellitus without complications Plan: increased jardiance from 10mg to 25mg (2) Skin lesions: Code(s): L98.9 - Disorder of the skin and subcutaneous tissue, unspecified Plan: referred to derm Plan The patient agreed to the use of a nuclear medicine medical director for this encounter. Scribed for SERGEI Ballard by nica Alva scribe, on 01/16/2024 at 13:15 EST. Orders: Referrals Cologuard Test Z12.11 - Encounter for screening for malignant neoplasm of colon, Z12.12 - Encounter for screening for malignant neoplasm of rectum Ophthalmology Referral E11.9 - Type 2 diabetes mellitus without complications Dermatology Referral L98.9 - Disorder of the skin and subcutaneous tissue, unspecified Coding Level of Care Code Est Pt Prev Care 40-64y(51441) Diagnoses Newly diagnosed diabetes E11.9 Skin lesions L98.9 Additional Codes MASSIMO-7 Assessment Billing - MASSIMO-7 Assessment Tool: MASSIMO-7 Assessment [id number] ([id number])
[2024-01-16 12:58] VITALS: BP 128/70; PULSE 76; O2SAT 98; BMI 29.7
== END 2024-01-16 13:32 | disposition home or self-care (01) ==
PROVIDERS: PCP Nurse Practitioner Family; Visit Provider Nurse Practitioner Family
DX: Z00.00 Encounter for general adult medical examination without abnormal findings (principal); E11.9 Type 2 diabetes mellitus without complications; L98.9 Disorder of the skin and subcutaneous tissue, unspecified
CPT/HCPCS: 99396

== ENCOUNTER 2024-05-04 09:18 | Outpatient (AMB) | payer OTHER, SELFPAY ==
[2024-05-04 09:20] VITALS: BP 118/70; PULSE 88; O2SAT 98; BMI 26.1
--- NOTE | 2024-05-04 09:20 | MHC.PC.OV ---
Vital Signs 05/04/24 09:20 Height 4 ft 10 in Weight 125 lb BMI 26.1 BP 118/70 Blood Pressure Location Rt brachial Position Sitting Pulse 88 Pulse Source Pulse Oximeter Pulse Oximetry (%) 98 Intake Visit Reasons: follow up a1c debetes Intake Note: pt is here for DM f/up, a1c done in office today Partner Required: No Allergies ciprofloxacin [From CIPRO] Allergy (Severe, Verified 05/04/24 11:28) UNKNOWN Sulfa (Sulfonamide Antibiotics) [SULFA (SULFONAMIDE ANTIBIOTICS)] Allergy (Unknown, Verified 05/04/24 11:28) UNKNOWN, Vomiting Antibiotic Allergy (Unknown, Uncoded 05/04/24 11:28) Unknown bee sting Allergy (Unknown, Uncoded 05/04/24 11:28) Swelling Bee stings Allergy (Unknown, Uncoded 05/04/24 11:28) Severe swelling, SOB Ciprofloxacin Allergy (Unknown, Uncoded 05/04/24 11:28) dizziness Medication List - Last Reconciled 05/04/24 by SERGEI Meyer atorvastatin 20 mg PO BEDTIME empagliflozin 25 mg PO DAILY 90 days lisinopril 2.5 mg PO DAILY metformin ER 500 mg PO BID Tobacco use date assessed: 10/15/23 Dental Screening Dental Screen Date: 10/15/23 HPI follow up a1c debetes HPI Details Pt is a diabetic, on an YRIS and a statin. A1C in office today is 7.1. Due for microalbumin, will order. Denies polyuria, polydipsia, and neuropathy. Pt denies any signs and symptoms of hypoglycemia and does know how to correct it. Pt would not like to make any med changes. She will work on her diet and being more active. Eye exam is up to date. Refuses all vaccinations. [facility] Medical History Cervical disc herniation DDD (degenerative disc disease), cervical Surgical History S/P tonsillectomy Hx of tubal ligation Social History Patient Tobacco Use Status: Former Tobacco user Cognitive needs: No Hearing needs: No Vision needs: Yes Questionnaire Thrive Questionnaire Date Thrive assessed: 05/04/24 I am a: Patient What is your living situation today?: I have a steady place to live Within the past 12 months, did the food you bought not last and you didn't have the money to get more?: Never true Within the past 12 months, did you worry whether your food would run out before you got money to buy more?: Never true Do you have trouble paying for medicines?: No Do you have trouble getting transportation to medical appointments?: No Do you have trouble paying your heating and electricity bill?: No Do you have trouble taking care of your child, family member or friend?: No Do you have trouble with day-to-day activities such as bathing, preparing meals, shopping, managing finances, etc.?: No Are you currently unemployed and looking for a job?: No Are you interested in more education?: No Please select the resources that you would like help with: None Currently or been in a relationship where the following occur: No concerns reported THRIVE Score: 0 MASSIMO-7 AMB Questionnaire MASSIMO-7 Date MASSIMO - 7 assessed: 10/15/23 Source: Developed by Drs. Jose De Jesus Horvath, Bita Huerta, Alexi Ryan and colleagues, with an educational jessica from [employer]. Review of Systems Const Reports as per HPI Physical exam (Primary Care) Vital Signs: Last Vital Signs Pulse 88 05/04/24 09:20 BP 118/70 05/04/24 09:20 Pulse Ox 98 05/04/24 09:20 BMI result Body Mass Index 26.1 Tobacco/Smoking Status: Tobacco use Status Tobacco use date assessed 10/15/23 05/04/24 09:20 Patient Tobacco Use Status Former Tobacco user 05/04/24 09:20 Thrive Assessment: Date of Thrive Assessment Date Thrive assessed 05/04/24 05/04/24 09:24 Currently or been in a relationship where the following occur: No concerns reported Const General: cooperative Orientation/consciousness: patient oriented x3 Resp Effort & Inspection: normal respiratory effort Auscultation: clear to auscultation bilaterally Cardio Rate: regular rate Rhythm: regular rhythm Heart sounds: S1 normal heart sound present, S2 normal heart sound present and Murmur heart sound present systolic Neuro General: patient oriented x3 Extrem Other: refused foot exam Psych Appearance: grossly normal Mental Status: mental status grossly normal Speech and movement: Normal speech and movement present Affect: normal affect Attitude: cooperative Thought process: Normal thought process present Thought content: Normal thought content present Insight: Good insight present (Psych) Judgement: Good judgement present (Psych) Results AMB Hemoglobin A1c AMB Hemoglobin A1c 7.1 % Last Edit by Kilo Lowe CMA on 05/04/24 09:38 Results Reviewed Results Reviewed: Laboratory Last Values Hgb A1c (Clinic) 7.1 % (4.0-6.0) H 05/04/24 09:37 Coding Level of Care Code Est Pt Level 3 (27857) Diagnoses Diabetes E11.9 Assessment & Plan Assessment & Plan (1) Diabetes: Code(s): E11.9 - Type 2 diabetes mellitus without complications Category: Medical Plan: encouraged working on her diet and starting a exercise routine. Plan The patient agreed to the use of a medical billing specialist for this encounter. Scribed for SERGEI Ballard by Jayla Mcneill medical billing specialist, on 05/04/2024 at 09:35 EST. Orders: Orders Complete Blood Count Auto Diff Today E11.9 - Type 2 diabetes mellitus without complications Comprehensive [place]. Panel Fast Today E11.9 - Type 2 diabetes mellitus without complications TSH reflex Free T4 Today E11.9 - Type 2 diabetes mellitus without complications UA CC w/rflx Micro + Cult Today E11.9 - Type 2 diabetes mellitus without complications Lipid Panel Today E11.9 - Type 2 diabetes mellitus without complications Microalbumin, Random (w Creat) Today E11.9 - Type 2 diabetes mellitus without complications AMB Hemoglobin A1c Today Z13.9 - Encounter for screening, unspecified
== END 2024-05-04 11:39 | disposition home or self-care (01) ==
PROVIDERS: PCP Nurse Practitioner Family; Visit Provider Nurse Practitioner Family
DX: E11.9 Type 2 diabetes mellitus without complications (principal); Z13.9 Encounter for screening, unspecified

== ENCOUNTER → 2024-05-04 09:18 | Outpatient (BNVA) | payer OTHER, SELFPAY | PROVIDERS: PCP Nurse Practitioner Family; Visit Provider Nurse Practitioner Family | DX: E11.9 Type 2 diabetes mellitus without complications (principal) | CPT/HCPCS: 83036; 99212 ==

== ENCOUNTER 2024-09-10 09:46 | Outpatient (AMB) | payer OTHER, SELFPAY ==
[2024-09-10 09:55] VITALS: BP 116/76; PULSE 78; TEMP 36.7; O2SAT 97; BMI 26.1
--- NOTE | 2024-09-10 09:55 | A.OFFPC_ITS ---
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: No Accompanied by: Self / Same As Patient Allergies ciprofloxacin [From CIPRO] Allergy (Severe, Verified 09/10/24 09:55) UNKNOWN Sulfa (Sulfonamide Antibiotics) [SULFA (SULFONAMIDE ANTIBIOTICS)] Allergy (Unknown, Verified 09/10/24 09:55) UNKNOWN, Vomiting Antibiotic Allergy (Unknown, Uncoded 05/04/24 11:28) Unknown bee sting Allergy (Unknown, Uncoded 05/04/24 11:28) Swelling Bee stings Allergy (Unknown, Uncoded 05/04/24 11:28) Severe swelling, SOB Ciprofloxacin Allergy (Unknown, Uncoded 05/04/24 11:28) dizziness Medication List - Last Reconciled 09/10/24 by KAELYN Meyer- atorvastatin 20 mg PO BEDTIME empagliflozin 25 mg PO DAILY 90 days lisinopril 2.5 mg PO DAILY metformin ER 500 mg PO BID Tobacco use date assessed: 09/10/24 Dental Screening Dental Screen Date: 09/10/24 Did you have a dental visit in the last 12 months?: No Did you have a dental problem in the last 6 months where you did not have access to dental care?: No Was dental information given to patient?: Patient declined HPI 4 months f/up/See OA HPI Details Chief Complaint Follow-up visit for diabetes History of Present Illness The patient is a 59-year-old female presenting with a follow-up for diabetes management. She has a diagnosis of Type 2 Diabetes Mellitus, with her last Hemoglobin A1c recorded at 7.4. During the visit, she denies any symptoms typically associated with diabetes complications, including chest pain, shortness of breath, and neuropathy. Other gastrointestinal symptoms such as abdominal pain, constipation, or diarrhea are also absent. Notably, the patient prefers to decline a foot examination today. She acknowledges the presence of a systolic heart murmur, echo up to date currently Social History Health Maintenance - Vaccinations: Follow up on vaccination status mentioned in the conversation. - Diabetes Management: Discussed increas ing Metformin dosage for better glycemic control. Review of Systems - Cardiovascular: Denies chest pain, mai rtness of breath - Neurological: Denies neuropathy - Gastrointestinal: Denies abdominal andreina n, constipation, diarrhea Physical Exam General: Cooperative, healthy appearing, comfortable, no acute distress and well developed Orientation: Patient oriented x3 Limitations: No limitations Head: Normal to inspection Ears: Hearing grossly normal bilaterally Nose: Normal external nose present Face and sinus: Normal facial exam Eyes: Appearance normal, both eyes and all related structures Neck: Normal visual inspection and Yes full ROM Respiratory: Normal respiratory effort and able to speak in complete sentences. Clear to auscultation bilaterally Cardiovascular: Systolic murmur present. Regular rate and rhythm. Normal S1 and S2 GI: Normal to inspection. Soft to palpation and nontender Skin: No rashes or lesions noted Neuro: Patient oriented x3 Extremities: Normal to inspection Results - Labs: Hemoglobin A1c 7.4 Plan 1. 4. This adjustment aims to improve gl ycemic control. Although she declined a foot exam today, ensuring regular monitoring for diabetes-related complications is essential, and follow-up will occur shortly to evaluate her response to the medication change.: Discussion Notes During today's session, I explained the importance of achieving optimal glycemic control in managing Type 2 Diabetes Mellitus. The patient's recent A1c reading of 7.4 suggests the need for a more aggressive approach, prompting an increase in her Metformin to 1000 mg twice daily. I discussed the potential gastrointestinal side effects, stressing the necessity of close follow-up to assess her tolerance to the new dosage. We also touched upon the significance of regular monitoring for diabetes complications and reinforcing vaccination follow-up. Patient Instructions - Increase Metformin dosage to 1000 mg t wice daily as directed. - Monitor for any side effects such as g astrointestinal upset. - Follow up soon to reassess diabetes ma nagement and medication tolerance. - Report any new symptoms or concerns, s uch as changes in sensation or wounds on feet. [facility] Medical History Cervical disc herniation DDD (degenerative disc disease), cervical Surgical History S/P tonsillectomy Hx of tubal ligation Social History Patient Tobacco Use Status: Former Tobacco user Cognitive needs: No Hearing needs: No Vision needs: Yes Questionnaire PHQ-9 Over the last 2 weeks, how often have you been bothered by any of the following problems? 1. Little interest or pleasure in doing things: not at all 2. Feeling down, depressed, or hopeless: not at all 3. Trouble falling or staying asleep, or sleeping too much: not at all 4. Feeling tired or having little energy: not at all 5. Poor appetite or overeating: not at all 6. Feeling bad about yourself - or that you are a failure or have let yourself or your family down: not at all 7. Trouble concentrating on things, such as reading the newspaper or watching television: not at all 8. Moving or speaking so slowly that other people could have noticed. Or the opposite - being so fidgety or restless that you have been moving around a lot more than usual: not at all 9. Thoughts that you would be better off or of hurting yourself in some way: not at all Total score: 0 Depression Screening Interpretation: Negative Depression Screening Done: Yes [id number] - PHQ-9 Billing: Yes Source: Developed by Drs. Jose De Jesus Horvath, Bita Huerta, Alexi Ryan and colleagues, with an educational jessica from [employer]. Thrive Questionnaire Date Thrive assessed: 09/10/24 I am a: Patient What is your living situation today?: I have a steady place to live Within the past 12 months, did the food you bought not last and you didn't have the money to get more?: Never true Within the past 12 months, did you worry whether your food would run out before you got money to buy more?: Never true Do you have trouble paying for medicines?: No Do you have trouble getting transportation to medical appointments?: No Do you have trouble paying your heating and electricity bill?: No Do you have trouble taking care of your child, family member or friend?: No Do you have trouble with day-to-day activities such as bathing, preparing meals, shopping, managing finances, etc.?: No Are you currently unemployed and looking for a job?: No Are you interested in more education?: No Please select the resources that you would like help with: None Currently or been in a relationship where the following occur: No concerns reported THRIVE Score: 0 AUDIT C Alcohol Use Questionnaire (AUDIT-C) 1. How often do you have a drink containing alcohol?: Never 3. How often do you have six or more drinks on one occasion?: Never Total Score: 0 Score Reviewed/Action Taken: Yes MASSIMO-7 AMB Questionnaire MASSIMO-7 Date MASSIMO - 7 assessed: 09/10/24 Feeling nervous, anxious, or on edge: 0 = Not at all Not being able to stop or control worryin = Not at all Worrying too much about different things: 0 = Not at all Trouble relaxin = Not at all Being so restless that it is hard to sit still: 0 = Not at all Becoming easily annoyed or irritable: 0 = Not at all Feeling afraid as if something awful might happen: 0 = Not at all Total MASSIMO-7 score (0-4 normal; 5-9 mild; 10-14 moderate; 15-21 severe): 0 Source: Developed by Drs. Jose De Jesus Horvath, Bita Huerta, Alexi Ryan and colleagues, with an educational jessica from [employer]. MASSIMO-7 Assessment Billing MASSIMO-7 Assessment Tool: MASSIMO-7 Assessment 24557 Physical exam (Primary Care) Vital Signs: Last Vital Signs Temp 98.0 F 09/10/24 09:55 Pulse 78 09/10/24 09:55 BP 116/76 09/10/24 09:55 Pulse Ox 97 09/10/24 09:55 Oxygen Delivery Method Room Air 09/10/24 09:55 BMI result Body Mass Index 26.1 Tobacco/Smoking Status: Tobacco use Status Tobacco use date assessed 09/10/24 09/10/24 09:57 Patient Tobacco Use Status Former Tobacco user 09/10/24 09:55 PHQ-9: PHQ-9 Score PHQ-9: Total score 0 09/10/24 09:57 Depression Screening Interpretation: Negative Thrive Assessment: Date of Thrive Assessment Date Thrive assessed 09/10/24 09/10/24 09:57 Currently or been in a relationship where the following occur: No concerns reported Coding Level of Care Code Est Pt Level 3 (34927) Diagnoses Diabetes E11.9 Additional Codes MASSIMO-7 Assessment Billing - MASSIMO-7 Assessment Tool: MASSIMO-7 Assessment 06553 ([id number]) PHQ-9 - 97775 - PHQ-9 Billing: Yes ([id number]) Assessment & Plan Assessment & Plan (1) Diabetes: Code(s): E11.9 - Type 2 diabetes mellitus without complications Category: Medical Plan . Medications: Changed From metformin ER 500 mg PO BID 180 tabs 1RF To metformin ER 750 mg PO BID 30 days 60 tabs 2RF
== END 2024-09-10 10:28 | disposition home or self-care (01) ==
LOC: HO.HMCC 09:47
PROVIDERS: PCP Nurse Practitioner Family; Visit Provider Nurse Practitioner Family
DX: E11.9 Type 2 diabetes mellitus without complications (principal)

== ENCOUNTER → 2024-09-10 09:46 | Outpatient (BNVA) | payer OTHER, SELFPAY | PROVIDERS: PCP Nurse Practitioner Family; Visit Provider Nurse Practitioner Family | DX: E11.9 Type 2 diabetes mellitus without complications (principal) | CPT/HCPCS: 83036; 96127; 99212 ==

== ENCOUNTER 2025-01-18 10:49 | Outpatient (AMB) | payer OTHER, SELFPAY ==
--- NOTE | 2025-01-18 10:54 | A.OFFPC_ITS ---
Vital Signs 01/18/25 10:58 Height 4 ft 10 in Weight 123 lb BMI 25.7 BP 118/78 Blood Pressure Location Lt brachial Position Sitting Respiration 16 Pulse 77 Pulse Source Pulse Oximeter Temp 98.1 F Temp Source Oral Pulse Oximetry (%) 98 Oxygen Delivery Method Room Air Intake Visit Reasons: PE Trial Mgr Required: No Accompanied by: Self / Same As Patient Allergies ciprofloxacin (From CIPRO) Allergy (Severe, Verified 01/18/25 10:58) UNKNOWN Sulfa (Sulfonamide Antibiotics) (SULFA (SULFONAMIDE ANTIBIOTICS)) Allergy (Unknown, Verified 01/18/25 10:58) UNKNOWN, Vomiting Antibiotic Allergy (Unknown, Uncoded 05/04/24 11:28) Unknown bee sting Allergy (Unknown, Uncoded 05/04/24 11:28) Swelling Bee stings Allergy (Unknown, Uncoded 05/04/24 11:28) Severe swelling, SOB Ciprofloxacin Allergy (Unknown, Uncoded 05/04/24 11:28) dizziness Medication List - Last Reconciled 01/18/25 by KAELYN Meyer- atorvastatin 20 mg PO BEDTIME empagliflozin (Jardiance) 25 mg PO DAILY lisinopril 2.5 mg PO DAILY metformin ER 500 mg PO TID 30 days Tobacco use date assessed: 01/18/25 Dental Screening Dental Screen Date: 01/18/25 Did you have a dental visit in the last 12 months?: Yes Did you have a dental problem in the last 6 months where you did not have access to dental care?: No Was dental information given to patient?: Patient has dentist HPI PE HPI Details History of Present Illness The patient is a 59-year-old female presenting for a physical examination and management of diabetes mellitus. Her diabetes management includes metformin, which she reports causes gastrointestinal discomfort. Her current A1c is 6.5%, and she is working on dietary modifications to improve her condition. Preventative care measures were discussed, including the importance of a mammogram, which is due this month, and maintaining up-to-date eye exams. Her colon cancer screening is current, and she has declined any vaccinations at this time. A faint systolic murmur was noted during the cardiovascular examination, and her feet showed positive sensation with monofilament testing. Health Maintenance - Mammogram due this month - Eye exam up to date - Colon cancer screening up to date - Declined vaccinations -supervisor assembling referral placed Social History - Diet: Patient is working on dietary mo difications to manage diabetes. Review of Systems - Endocrine: Reports gastrointestinal di scomfort with metformin use. denies any urinary issues, cp, sob, neuropathy, blurred vision, fevers, chills. Does get diarrhea from metformin Physical Exam General: Cooperative, healthy appearing, comfortable, no acute distress and well developed Orientation: Patient oriented x3 Limitations: No limitations Head: Normal to inspection Ears: Hearing grossly normal bilaterally Nose: Normal external nose present Face and sinus: Normal facial exam Eyes: Appearance normal, both eyes and all related structures Neck: Normal visual inspection and Yes full ROM Respiratory: Normal respiratory effort and able to speak in complete sentences. Clear to auscultation bilaterally Cardiovascular: Regular rate and rhythm. Normal S1 and S2. Faint systolic murmur noted GI: Normal to inspection. Soft to palpation and nontender Skin: No rashes or lesions noted Neuro: Patient oriented x3 Extremities: Normal to inspection. Feet were intact by lap positive sensation use of monofilament Results - Labs: A1c 6.5% Plan The patient's diabetes management will be adjusted by changing the metformin dosage to 500 mg three times a day to alleviate gastrointestinal discomfort. If symptoms persist, the dosage will be reduced to 500 mg twice a day. Preventative care measures include scheduling a mammogram and encouraging the patient to maintain up-to-date screenings. The patient has been advised to continue dietary modifications to manage her diabetes effectively. A follow-up appointment is scheduled in six months, with instructions to contact via portal for any concerns, especially regarding metformin use. Discussion Notes I discussed with the patient the importance of adjusting her metformin dosage to manage gastrointestinal discomfort and emphasized the need for dietary modifications to control her diabetes. We reviewed the necessity of completing her mammogram and maintaining up-to-date screenings. I advised her to contact me via the portal if she experiences any issues with her medication or has further questions. Patient Instructions - Take metformin 500mg ER three times a day. If stomach issues continue, reduce to twice a day. - Schedule and complete your mammogram t his month. - Continue working on your diet to help manage diabetes. - Follow up in six months or contact via portal if you have any concerns. [facility] Medical History Cervical disc herniation DDD (degenerative disc disease), cervical Surgical History S/P tonsillectomy Hx of tubal ligation Social History Patient Tobacco Use Status: Former Tobacco user Cognitive needs: No Hearing needs: No Vision needs: Yes Questionnaire PHQ-9 Over the last 2 weeks, how often have you been bothered by any of the following problems? 2. Feeling down, depressed, or hopeless: not at all 3. Trouble falling or staying asleep, or sleeping too much: not at all 4. Feeling tired or having little energy: not at all 5. Poor appetite or overeating: several days 7. Trouble concentrating on things, such as reading the newspaper or watching television: not at all 8. Moving or speaking so slowly that other people could have noticed. Or the opposite - being so fidgety or restless that you have been moving around a lot more than usual: not at all 9. Thoughts that you would be better off or of hurting yourself in some way: not at all Depression Screening Interpretation: Negative Depression Screening Done: Yes 62022 - PHQ-9 Billing: Yes Source: Developed by Drs. Jose De Jesus Horvath, Bita Huerta, Alexi Ryan and colleagues, with an educational jessica from [employer]. Thrive Questionnaire Date Thrive assessed: 09/07/24 I am a: Patient What is your living situation today?: I have a steady place to live Within the past 12 months, did the food you bought not last and you didn't have the money to get more?: Never true Within the past 12 months, did you worry whether your food would run out before you got money to buy more?: Never true Do you have trouble paying for medicines?: No Do you have trouble getting transportation to medical appointments?: No Do you have trouble paying your heating and electricity bill?: No Do you have trouble taking care of your child, family member or friend?: No Do you have trouble with day-to-day activities such as bathing, preparing meals, shopping, managing finances, etc.?: No Are you currently unemployed and looking for a job?: No Are you interested in more education?: No Please select the resources that you would like help with: None Currently or been in a relationship where the following occur: No concerns reported THRIVE Score: 0 AUDIT C Alcohol Use Questionnaire (AUDIT-C) 3. How often do you have six or more drinks on one occasion?: Never Total Score: 0 Score Reviewed/Action Taken: Yes MASSIMO-7 AMB Questionnaire MASSIMO-7 Date MASSIMO - 7 assessed: 09/10/24 Feeling nervous, anxious, or on edge: 0 = Not at all Not being able to stop or control worryin = Not at all Worrying too much about different things: 0 = Not at all Trouble relaxin = Not at all Being so restless that it is hard to sit still: 0 = Not at all Becoming easily annoyed or irritable: 0 = Not at all Feeling afraid as if something awful might happen: 0 = Not at all Total MASSIMO-7 score (0-4 normal; 5-9 mild; 10-14 moderate; 15-21 severe): 0 Source: Developed by Drs. Jose De Jesus Horvath, Bita Huerta, Alexi Ryan and colleagues, with an educational jessica from [employer]. MASSIMO-7 Assessment Billing MASSIMO-7 Assessment Tool: MASSIMO-7 Assessment 47722 Physical exam (Primary Care) Vital Signs: Last Vital Signs Temp 98.1 F 01/18/25 10:58 Pulse 77 01/18/25 10:58 Resp 16 01/18/25 10:58 BP 118/78 01/18/25 10:58 Pulse Ox 98 01/18/25 10:58 Oxygen Delivery Method Room Air 01/18/25 10:58 BMI result Body Mass Index 25.7 Tobacco/Smoking Status: Tobacco use Status Tobacco use date assessed 01/18/25 01/18/25 11:07 Patient Tobacco Use Status Former Tobacco user 01/18/25 10:56 Depression Screening Interpretation: Negative Thrive Assessment: Date of Thrive Assessment Date Thrive assessed 09/07/24 01/18/25 10:56 Currently or been in a relationship where the following occur: No concerns reported Results AMB Hemoglobin A1c AMB Hemoglobin A1c 6.5 % Last Edit by Daksha Vásquez MA on 01/18/25 11:13 Results Reviewed Results Reviewed: Laboratory Last Values Hgb A1c (Clinic) 6.5 % (4.0-6.0) H 01/18/25 10:57 Coding Level of Care Code Est Pt Level 3 (40368) Est Pt Prev Care 40-64y(76537) Diagnoses Diabetes E11.9 Physical exam Z00.00 Additional Codes MASSIMO-7 Assessment Billing - MASSIMO-7 Assessment Tool: MASSIMO-7 Assessment 10538 ([id number]) PHQ-9 - 70665 - PHQ-9 Billing: Yes ([id number]) Assessment & Plan Assessment & Plan (1) Diabetes: Code(s): E11.9 - Type 2 diabetes mellitus without complications Category: Medical (2) Physical exam: Code(s): Z00.00 - Encounter for general adult medical examination without abnormal findings Category: Medical Plan . Orders: Orders AMB Hemoglobin A1c Today Z13.9 - Encounter for screening, unspecified MM screening mammo BI Today Z12.31 - Encounter for screening mammogram for malignant neoplasm of breast Referrals [employer] Referral E11.9 - Type 2 diabetes mellitus without complications Medications: Changed From metformin ER 750 mg PO BID 180 tabs 1RF To metformin ER 500 mg PO TID 90 tabs 3RF 30 days
[2025-01-18 10:58] VITALS: BP 118/78; PULSE 77; RESP 16; TEMP 36.7; O2SAT 98; BMI 25.7
== END 2025-01-18 11:50 | disposition home or self-care (01) ==
LOC: HO.HMCC 10:50
PROVIDERS: PCP Nurse Practitioner Family; Visit Provider Nurse Practitioner Family
DX: Z00.00 Encounter for general adult medical examination without abnormal findings (principal); E11.9 Type 2 diabetes mellitus without complications

== ENCOUNTER → 2025-01-18 10:49 | Outpatient (BNVA) | payer OTHER, SELFPAY | PROVIDERS: PCP Nurse Practitioner Family; Visit Provider Nurse Practitioner Family | DX: Z00.00 Encounter for general adult medical examination without abnormal findings (principal); E11.9 Type 2 diabetes mellitus without complications; Z79.84 Long term (current) use of oral hypoglycemic drugs | CPT/HCPCS: 83036; 96127; 99212; 99396 ==